=== PATIENT | male | born 1950 | race Caucasian/White ===

== ENCOUNTER 2017-06-18 14:40 | Observation (INO) ==
[2017-06-18] MEDS ORDERED: Ondansetron ODT 4 MG TAB.RAPDIS SL ONE (15:47)
[2017-06-18 16:12] LABS: Basophils % 0.5 %; Eosinophils # 0.1 K/mcL (0.0-0.6); Hematocrit 45.8 % (37.5-50.1); Hemoglobin 15.1 g/dL (12.9-16.9); Immature Granulocytes % 0.4 % (0-4); Lymphocytes # 1.1 K/mcL (0.6-4.6); Mean Corpuscular Hemoglobin 28.9 pg (28.0-33.3); Mean Corpuscular Volume 87.6 fL (83.0-100.0); Mean Platelet Volume 10.7 fL (9.4-12.4); Monocytes # 0.6 K/mcL (0.0-1.3); Monocytes % 10.9 %; Neutrophils # 3.8 K/mcL (1.6-8.9); Platelet Count 166 K/mcL (140-400); Red Blood Count 5.23 M/mcL (4.19-5.50); Red Cell Distribution Width 12.9 % (11.5-14.5); Segmented Neutrophils % 67.2 %
[2017-06-18 16:25] LABS: BUN/Creatinine Ratio 21 (6-26); Blood Urea Nitrogen 18 mg/dL (8-26); Calcium 9.2 mg/dL (8.6-10.8); Carbon Dioxide 21 mEq/L (19-29); Chloride 105 mEq/L (98-109); Glucose 139 mg/dL (70-99); Osmolality,Calculated 290 (280-300); Potassium 4.4 mEq/L (3.5-4.5); Sodium 138 mEq/L (136-145); eGFR For African Americans > 60 (> 60); eGFR For Non-African Americans > 60 (> 60)
--- NOTE | 2017-06-18 16:30 | Emergency Department Note ---
Disposition Clinical Impression: Vertigo, Chest pain of uncertain etiology Disposition: Admitted As Inpatient Condition: Fair Referrals: NONE,PCP [Primary Care Provider] - Forms: ED Satisfaction Letter Time of Disposition: 20:05 Neuro HPI - General Chief Complaint: ED Neuro Symptoms/Deficit Stated Complaint: neuro symptoms x 2 days Time Seen by Provider: 06/18/17 15:02 Source: patient Limitations: no limitations Nursing Notes Reviewed: Yes Vital Signs Reviewed: Yes - History of Present Illness HPI Narrative: Mr. Barnes, 67-year-old male, presents from home with daughter bedside for evaluation of what he describes as "blacking out." Patient describes position dependent dizziness over the last week. Increased in intensity Wednesday and Wednesday. During these symptoms, he describes the room spinning and he is about to lose his balance. Before he falls, he sits down to regain his composure. He denies falling, no loss of consciousness. No prior episodes of similar symptoms. Patient does not have a primary care physician has not seen a physician in some time. He notes untreated hypertension and hyperglycemia. Patient's daughter, and RN at this facility, measured his blood pressure at noon today as 177/117. No history of CAD, ACS, CVA, TIA. No daily anticoagulant or antiplatelet use. Daily medications. - Related Data Home Medications: Home Medications Medication Instructions Recorded Confirmed DiphenhydraMINE [Benadryl] 12.5 mg PO DAILY PRN 06/18/17 06/18/17 Allergies/Adverse Reactions: Allergies Allergy/AdvReac Type Severity Reaction Status Date / Time No Known Allergies Allergy Verified 06/18/17 16:48 All systems ED: reviewed and negative except as stated. Review of Systems: As Per HPI Past Medical History - Past Medical History Medical history: Reports: no medical history Psychiatric history: Reports: no psych history - Social History Smoking Status: Never smoker Smokeless Tobacco Status: No Alcohol use: Reports: none Drug use: Reports: none Physical Exam Vital Signs Reviewed General: Patient is alert, oriented, and in no acute distress. HEENT: No facial asymmetry. Head is normocephalic and atraumatic. PERRLA, EOMI. bilateral fatigable horizontal nystagmus. No visual field deficits. No papilledema bilaterally on funduscopic exam. Cardiovascular: Heart regular rate and rhythm without clicks, rubs, gallops, or murmurs. No JVD. PMI nondisplaced. Respiratory: Symmetric chest rise with good respiratory effort. Bilateral breath sounds are clear without wheezing, crackles, or rhonchi. Abdomen: Bowel sounds present normoactive x-4 quadrants. Abdomen is soft, nondistended, and nontender. No organomegaly noted. Musculoskeletal: Muscle strength 5/5 and symmetric bilaterally in upper and lower extremities. Neuro: Cranial nerves II through XII without deficit. Sensation light touch intact. No pronator drift. Negative [id number]. No dysphagia or a aphasia. Psych: Patient's affect is appropriate for situation. - General Limitations: no limitations General appearance: alert, in no apparent distress Course Course Narrative: Patient symptoms clinically appeared to be positional. Lack of patient's medical history is not reassuring; rather it is concerning as there are no prior workups were previous medical history on which to gauge his risk factors. Attempted to find the patient with Antivert; he refused. EKG is nonspecific. No previous EKG for comparison. Initial troponin is within normal limits. Serum hematology is unremarkable. Serum chemistry is remarkable only for mild hyperglycemia. Urinalysis is not concerning for UTI. Chest x-ray and CT head showed no acute findings per radiology read. Patient is asymptomatic when still becomes symptomatic with movement. I discussed with he and his family bedside the need for continued workup specifically to rule out posterior venous sinus thrombosis. I discussed in detail the need for MRI which is appropriately done on an inpatient basis. He is in agreement to admission for continued evaluation and management. I discussed the patient with the admitting hospitalist, Dr. Kendall, increased to except the patient for further evaluation and management. Head CT 06/18/17 15:46 IMPRESSION: No acute intracranial abnormality. D/ / Jovana Post Cha, MD / Jovana Post Cha, MD Interpreting Provider: Jovana Post Cha, MD Vital Signs Temperature 98.5 F 06/18/17 14:56 Pulse Rate 72 06/18/17 14:56 Respiratory Rate 18 06/18/17 14:56 Blood Pressure 159/92 06/18/17 14:56 O2 Sat by Pulse Oximetry 99 06/18/17 14:56 Temperature 98.5 F 06/18/17 14:56 Pulse Rate 65 06/18/17 17:40 Respiratory Rate 18 06/18/17 17:40 Blood Pressure 133/91 06/18/17 17:40 O2 Sat by Pulse Oximetry 98 06/18/17 17:40 Oxygen Delivery Oxygen Delivery Room Air Neuro Symptoms/Deficit - Lab Data Result diagrams: 06/18/17 16:06 06/18/17 16:06 Lab Results 06/18/17 06/18/17 06/18/17 Range/Units 16:06 16:06 16:06 WBC 5.6 (4.3-11.1) K/mcL RBC 5.23 (4.19-5.50) M/mcL Hgb 15.1 (12.9-16.9) g/dL Hct 45.8 (37.5-50.1) % MCV 87.6 (83.0-100.0) fL MCH 28.9 (28.0-33.3) pg MCHC 33.0 (31.6-35.5) g/dL RDW 12.9 (11.5-14.5) % Plt Count 166 (140-400) K/mcL MPV 10.7 (9.4-12.4) fL Immature Gran % 0.4 (0-4) % Seg Neutrophils % 67.2 % Lymphocytes % 19.0 % Monocytes % 10.9 % Eosinophils % 2.0 % Basophils % 0.5 % Neutrophils # 3.8 (1.6-8.9) K/mcL Lymphocytes # 1.1 (0.6-4.6) K/mcL Monocytes # 0.6 (0.0-1.3) K/mcL Eosinophils # 0.1 (0.0-0.6) K/mcL Basophils # 0.0 (0.0-0.2) K/mcL PT (9.4-12.1) Seconds INR APTT (26.0-36.0) Seconds Sodium 138 (136-145) mEq/L Potassium 4.4 (3.5-4.5) mEq/L Chloride 105 (98-109) mEq/L Carbon Dioxide 21 (19-29) mEq/L BUN 18 (8-26) mg/dL Creatinine 0.84 (0.72-1.25) mg/dL Est GFR ( Amer) > 60 (> 60) Est GFR (Non-Af Amer) > 60 (> 60) BUN/Creatinine Ratio 21 (6-26) Glucose 139 H (70-99) mg/dL Calculated Osmolality 290 (280-300) Calcium 9.2 (8.6-10.8) mg/dL Total Bilirubin 0.5 (0.2-1.2) mg/dL Direct Bilirubin 0.2 (0.0-0.5) mg/dL Indirect Bilirubin 0.3 (0.0-1.2) mg/dL AST 21 (5-34) Units/L ALT 30 (0-55) Units/L Alkaline Phosphatase 77 (38-126) Units/L Troponin I 0.01 (0-0.03) ng/mL Serum Total Protein 7.6 (6.0-8.3) g/dL Albumin 3.7 (3.5-5.0) g/dL Globulin 3.9 H (2.4-3.5) g/dL Albumin/Globulin Ratio 0.9 L (1.1-2.2) Lipase 19 (8-78) Units/L Urine Color (Yellow) Urine Clarity (Clear) Urine pH (5.0-8.0) pH Units Ur Specific [place] (1.010-1.025) Urine Protein (Neg-Trace) mg/dL Urine Glucose (UA) (Normal) mg/dL Urine Ketones (Negative) mg/dL Urine Blood (Negative) Urine Nitrite (Negative) Urine Bilirubin (Negative) Urine Urobilinogen (Normal) mg/dL Ur Leukocyte Esterase (Negative) Ur Culture Indicated? (NO) 06/18/17 06/18/17 Range/Units 16:06 17:50 WBC (4.3-11.1) K/mcL RBC (4.19-5.50) M/mcL Hgb (12.9-16.9) g/dL Hct (37.5-50.1) % MCV (83.0-100.0) fL MCH (28.0-33.3) pg MCHC (31.6-35.5) g/dL RDW (11.5-14.5) % Plt Count (140-400) K/mcL MPV (9.4-12.4) fL Immature Gran % (0-4) % Seg Neutrophils % % Lymphocytes % % Monocytes % % Eosinophils % % Basophils % % Neutrophils # (1.6-8.9) K/mcL Lymphocytes # (0.6-4.6) K/mcL Monocytes # (0.0-1.3) K/mcL Eosinophils # (0.0-0.6) K/mcL Basophils # (0.0-0.2) K/mcL PT 11.4 (9.4-12.1) Seconds INR 1.1 APTT 31.1 (26.0-36.0) Seconds Sodium (136-145) mEq/L Potassium (3.5-4.5) mEq/L Chloride (98-109) mEq/L Carbon Dioxide (19-29) mEq/L BUN (8-26) mg/dL Creatinine (0.72-1.25) mg/dL Est GFR ( Amer) (> 60) Est GFR (Non-Af Amer) (> 60) BUN/Creatinine Ratio (6-26) Glucose (70-99) mg/dL Calculated Osmolality (280-300) Calcium (8.6-10.8) mg/dL Total Bilirubin (0.2-1.2) mg/dL Direct Bilirubin (0.0-0.5) mg/dL Indirect Bilirubin (0.0-1.2) mg/dL AST (5-34) Units/L ALT (0-55) Units/L Alkaline Phosphatase (38-126) Units/L Troponin I (0-0.03) ng/mL Serum Total Protein (6.0-8.3) g/dL Albumin (3.5-5.0) g/dL Globulin (2.4-3.5) g/dL Albumin/Globulin Ratio (1.1-2.2) Lipase (8-78) Units/L Urine Color Yellow (Yellow) Urine Clarity Clear (Clear) Urine pH 6.0 (5.0-8.0) pH Units Ur Specific [place] 1.027 H (1.010-1.025) Urine Protein Negative (Neg-Trace) mg/dL Urine Glucose (UA) Normal (Normal) mg/dL Urine Ketones Negative (Negative) mg/dL Urine Blood Negative (Negative) Urine Nitrite Negative (Negative) Urine Bilirubin Negative (Negative) Urine Urobilinogen Normal (Normal) mg/dL Ur Leukocyte Esterase Negative (Negative) Ur Culture Indicated? NO (NO) - EKG Data EKG attestation: Yes I reviewed and interpreted this EKG. EKG results narrative: EKG dated June 2017 at 16:17 interpreted as sinus rhythm with rate of 60. Occasional PVC. Normal intervals. 61, curettes 88, QT/QTC 410/428. Normal axis. Nonspecific ST T changes. No previous EKG for comparison. NIH Stroke Scale - Level of Consciousness LOC: Alert - LOC Questions LOC Questions: Answers both correctly - LOC Commands LOC Commands: Performs both correctly - Best Gaze Best Gaze: Normal - Visual Visual: No visual loss - Facial Palsy Facial Palsy: Normal - Motor Arms Motor Arm-Left: No drift for 10 seconds Motor Arm-Right: No drift for 10 seconds - Motor Legs Motor Leg-Left: No drift for 5 seconds Motor Leg-Right: No drift for 5 seconds - Limb Ataxia Limb Ataxia: Absent of affected limb too weak to perform exam - Sensory Sensory: Normal - Best Language Best Language: No aphasia - Dysarthria Dysarthria: Normal - Extinction and Inattention Extinction and Inattention: Normal - NIHSS Total Score NIHSS Total Score: 0 TPA Checklist - LKW: 3-4.5 hrs Add. Warnings/Precautions Patient/family understanding: The patient/family members have been counseled and understood the risk, benefit , and alternatives of treatment.
[2017-06-18 16:43] LABS: INR 1.1; Prothrombin Time 11.4 Seconds (9.4-12.1)
[2017-06-18 16:46] LABS: Activated Partial Thrombo Time 31.1 Seconds (26.0-36.0)
--- NOTE | 2017-06-18 16:49 | Emergency Department Note ---
START Narrative - START START: I examined this patient and my medical decision-making was reviewed with the Resident Physician. I agree with the documented findings, disposition and treatment plan as described except to the extent set forth below. 67 year old male presntes to the Ed with his daughter at bedside who states he has had generlized weakness for the past week or so. He states that he was working in his basement and everytime he would look up at the ceiling he would get tunnel vision and have near syncope type symptoms. Patient denies dizziness or spinning to the room. HE states that he would quickly bring his head back down and it would resolve. He states that he has also associted stuttering to his speech about two days ago with right hand tremor which has resoled. Daughter at bedside states that he appear retana and pale to her yesterday. He is also experiencing midsternal chest pain and abdominal discomfort which does not radiates. We will do generalized workup with labs and add a HCT for further evaluation .Likely admit to medicine
[2017-06-18 16:52] LABS: Alanine Aminotransferase 30 Units/L (0-55); Albumin 3.7 g/dL (3.5-5.0); Albumin/Globulin Ratio 0.9 (1.1-2.2); Alkaline Phosphatase 77 Units/L (38-126); Aspartate Amino Transferase 21 Units/L (5-34); Bilirubin,Direct 0.2 mg/dL (0.0-0.5); Bilirubin,Indirect 0.3 mg/dL (0.0-1.2); Bilirubin,Total 0.5 mg/dL (0.2-1.2); Globulin 3.9 g/dL (2.4-3.5); Lipase 19 Units/L (8-78); Total Protein 7.6 g/dL (6.0-8.3)
[2017-06-18 18:03] LABS: Bilirubin,Urine Negative (Negative); Blood,Urine Negative (Negative); Clarity,Urine Clear (Clear); Color,Urine Yellow (Yellow); Glucose,Urine (UA) Normal (Normal); Ketones,Urine Negative (Negative); Leukocyte Esterase,Urine Negative (Negative); Nitrite,Urine Negative (Negative); Protein,Urine Negative (Neg-Trace); Specific Gravity,Urine 1.027 (1.010-1.025); Urobilinogen,Urine Normal (Normal)
[2017-06-18] MEDS ORDERED: Naloxone 0.4 MG/ML INJ IVP PRN (21:02)
[2017-06-18] MEDS ORDERED: Ondansetron 4 MG/2 ML VIAL IVP PRN (21:02)
[2017-06-18] MEDS ORDERED: Acetaminophen 325 MG TABLET PO PRN (21:02)
[2017-06-18] MEDS ORDERED: *HR* Morphine 2 MG/ML SYRINGE IVP PRN (21:02)
--- NOTE | 2017-06-18 21:10 | Internal Med History&Physical ---
Date of Encounter: 06/18/17 Time of Encounter: 21:00 Assessment and Plan (1) Dizziness Current visit: Yes Status: Acute Dizziness with presyncope - possibly due to uncontrolled hypertension, possible CVA, possible vertebral artery occlusion Continue Aspirin, Simvastatin CT brain - no acute intracranial abnormality Echocardiogram - pending CTA head and neck - pending EKG - sinus rhythm with some PVCs, no acute ST-T changes Troponin - 0.01 Cardiac telemetry, labs in a.m., monitor closely (2) Essential hypertension Current visit: Yes Status: Acute Essential hypertension, uncontrolled, monitor - newly diagnosed hypertension Add lisinopril/HCTZ (3) DVT prophylaxis Current visit: Yes Status: Acute Heparin subcutaneous Internal Medicine - H&P: HPI Chief complaint: Dizziness, syncope Admitted From: Emergency Dept Plans for Post Hospital Care: Home History of present illness: Mr. Barnes is a 67 year old male with no significant past medical history. Patient presented to ED with complaints of dizziness and syncope. Examined in the room. Patient is awake and alert. Not in any distress. Able to provide all history. Family is at bedside. Patient states over the past week he has been having episodes where he feels like he is going to black out. He states he been feeling dizzy when he looks up. Patient states he has been working on his and has been painting gregorio. He is required to look up for long periods of time and states he feels dizzy and feels like he is about to pass out that time. No history of injury or trauma to the head recently. Patient denies having any blackout. states that patient's blood pressure has been elevated over the past week. They have been checking it almost every day and the systolic blood pressure has been consistently over 150. Patient denies chest pain or shortness of breath at this time. He does complain of intermittent palpitations. Denies fever or vomiting. Symptoms worse with head movement. Alleviated with rest. No abdominal pain. No other associated symptoms. No acute complaints. Initial EGD is negative. CT of the head does not show any acute intraparenchymal abnormality. EKG shows sinus rhythm with occasional PVCs but no acute ST-T changes. Patient will need a CT angiogram of the head and neck. Echocardiogram is also pending. Patient and family have been explained about his condition and plan in detail. They understood and agreed. No one his questions. CODE STATUS full code. Past Med Surg Social Fam HX - Past Medical History Medical history: no medical history Psychiatric history: no psych history - Social History Smoking Status: Never smoker Smokeless Tobacco Status: No Alcohol use: none Drug use: none - Family History Mother Living Status: Hx Family Cancer: Yes Hx Family Endocrine Disorder: Yes Father Living Status: Internal Medicine - H&P: Meds DiphenhydraMINE [Benadryl] 12.5 mg PO DAILY PRN 06/18/17 [History] 3 Allergy/AdvReac Type Severity Reaction Status Date / Time No Known Allergies Allergy Verified 06/18/17 16:48 All Systems PM: A 10-system review of systems was performed and is negative for pertinent findings except as documented above in the HPI. - Constitutional Constitutional: fatigue, no fever(s), no falls, no weakness - EENT Eyes: no blurry vision - Cardiovascular Cardiovascular ROS IM: no chest pain, no diaphoresis, no dyspnea, no dyspnea on exertion, no edema, no lightheadedness, no orthopnea, no palpitations, no syncope - Respiratory Respiratory: no cough, no dyspnea, no hemoptysis, no dyspnea on exertion, no wheezing, no chest congestion - Gastrointestinal Gastrointestinal: no abdominal pain, no bloating, no diarrhea, no hematemesis, no hematochezia, no loose stools, no nausea, no vomiting - Genitourinary Genitourinary ROS male: no dysuria - Neurological Neurological ROS: dizziness, no abnormal gait, no abnormal speech, no confusion , no focal weakness, no loss of vision, no numbness, no tingling - Constitutional Vitals: Temp Pulse Resp BP Pulse Ox 98.5 F 67 18 146/79 94 06/18/17 14:56 06/18/17 20:00 06/18/17 21:01 06/18/17 21:01 06/18/17 20:00 General appearance: Present: cooperative, A&O X 3, pleasant, no acute distress, obese, answers questions appropriately - Head Head exam: Present: atraumatic - Eye Eye exam: Present: EOMI - ENT ENT exam: Present: mucous membranes dry - Respiratory Respiratory exam: Present: CTAB. Absent: accessory muscle use, rales, respiratory distress, rhonchi, wheezes, tachypnea - Cardiovascular Cardiovascular exam: Present: RRR, +S1, +S2 - GI/Abdominal GI/Abdominal exam: Present: soft. Absent: distended, firm, guarding, tenderness - Extremities Exam Extremities exam: Present: radial pulses palpable and symmetrical. Absent: calf tenderness, cyanotic, pedal edema - Neurological Exam Neurological exam: Present: alert, oriented X3, no focal deficits. Absent: facial droop, speech deficit Internal Med - H&P Results - Labs CBC & Chem 7: 06/18/17 16:06 06/18/17 16:06
[2017-06-18] MEDS ORDERED: 0.9 % Sodium Chloride 1,000 ML IVC SCH (21:15)
[2017-06-18] MEDS: *HR* Heparin 5,000 UNIT/ML VIAL SQ SCH (23:26)
[2017-06-18] MEDS: Aspirin 81 MG TAB.CHEW PO SCH (23:26)
[2017-06-19] MEDS: *HR* Heparin 5,000 UNIT/ML VIAL SQ SCH ×2 (06:37→14:54)
[2017-06-19 06:38] LABS: Hemoglobin A1C 5.9 %
[2017-06-19 06:46] LABS: BUN/Creatinine Ratio 21 (6-26); Blood Urea Nitrogen 19 mg/dL (8-26); Calcium 8.8 mg/dL (8.6-10.8); Carbon Dioxide 24 mEq/L (19-29); Chloride 107 mEq/L (98-109); Chol/HDL Ratio 5.6 (0-4.9); Cholesterol 203 mg/dL (< 200); Glucose 120 mg/dL (70-99); HDL Cholesterol 36 mg/dL (40-59); LDL Cholesterol,Calculated 139 mg/dL (0-99); Magnesium 2.1 mg/dL (1.6-2.6); Osmolality,Calculated 287 (280-300); Potassium 4.4 mEq/L (3.5-4.5); Sodium 137 mEq/L (136-145); Triglycerides 142 mg/dL (< 150); eGFR For African Americans > 60 (> 60); eGFR For Non-African Americans > 60 (> 60)
[2017-06-19 07:07] LABS: Thyroid Stimulating Hormone 2.076 mcIU/mL (0.350-4.840)
[2017-06-19] MEDS: Aspirin 81 MG TAB.CHEW PO SCH (08:28)
[2017-06-19 11:48] VITALS: BP 108/69
--- NOTE | 2017-06-19 16:50 | Discharge Summary ---
Date of Encounter: 06/19/17 Time of Encounter: 11:50 - Discharge Diagnosis (1) Dizziness Priority: Primary Status: Acute Comments: Patient states over the past week he has been having episodes where he feels like he is going to black out. He states he been feeling dizzy when he looks up. Patient states he has been painting his ceiling at home and when he spends a great deal of time looking up he becomes dizzy. No history of injury or trauma to the head recently. Patient denies any actual loss of consciousness.. states that patient's blood pressure has been elevated over the past week. They have been checking it almost every day and the systolic blood pressure has been consistently over 150. Patient denies chest pain or shortness of breath, nausea, diaphoresis or headache. He denies any fever or chills, neck pain or injury. He does complain of intermittent palpitations with dizziness when he moves from lying to standing. Alleviated with rest. Patient had CT angiogram head and neck. There is suboptimal contrast opacification of the distal ICA and distal vertebral arteries. Within the limitations of the exam there is no vertebral artery dissection, major branch occlusion or cerebral aneurysm identified. There are atherosclerotic calcifications of the origins of the ICA without significant stenosis. Moderate to severe spinal canal stenosis and severe bilateral neuroforaminal opening at C6-7 secondary to broad posterior disc osteophyte complex. There is severe right neural foraminal narrowing at C3-C4. Echo showed LVEF was 60%, mild LV DD, wall segment with normal motion. Patient is declining further testing. His states that he is going to sign out AMA if he is not discharged since this time. I have discussed following up with ENT. Patient does not have a primary care provider at this time. He does not going to the doctor and does not have routine workups done. Patient is going to be discharged with a prescription for antihypertensive and meclizine. I have told patient not to drive until he follows up with primary care due to dizziness. Discussed with patient he needs to move from lying to sitting to standing, and turn his head slowly and make sure that he is stable before proceeding with any activities that could cause him harm. I suggested after patient establishes with primary care that he wear a Holter monitor. (2) Vertigo Priority: Primary Status: Acute Comments: Plan as above. (3) Essential hypertension Priority: Primary Status: Acute Comments: Newly diagnosed hypertension. Patient will be discharged with lisinopril/HCTZ prescription. (4) DVT prophylaxis Priority: Secondary Status: Acute Comments: Heparin subcutaneous. - Discharge Medications Prescriptions: Aspirin 81 mg PO DAILY #30 tab.chew Lisinopril-HCTZ 10-12.5 [Prinzide 10-12.5] 1 each PO DAILY #30 tablet Simvastatin [Zocor] 20 mg PO HS #30 tablet Home Medications: DiphenhydraMINE [Benadryl] 12.5 mg PO DAILY PRN 06/18/17 [History] Aspirin 81 mg PO DAILY #30 tab.chew 06/19/17 [Rx] Lisinopril-HCTZ 10-12.5 [Prinzide 10-12.5] 1 each PO DAILY #30 tablet 06/19/17 [ Rx] Simvastatin [Zocor] 20 mg PO HS #30 tablet 06/19/17 [Rx] Allergies/Adverse Reactions: 3 Allergy/AdvReac Type Severity Reaction Status Date / Time No Known Allergies Allergy Verified 06/18/17 16:48 Procedures/tests Complete & Pending: Procedures Performed prior 72 hours Category Date Time Status CT angio head [CT] Routine Cat Scan 06/19/17 09:[address] angio neck [CT] Routine Cat Scan 06/19/17 09:30 Completed ECG 12 lead ECG [ECG] AM 0600 Y 06/19/17 06:00 Ordered EV echocardiogram Routine Y 06/19/17 00:48 Completed Date of admission: 06/18/17 20:47 Primary care physician: PCP NONE Discharging clinician: Melissa Yang Anticipated date of discharge: 06/19/17 - Patient Status Disposition: Home, Self-Care Condition: Fair Functional capacity at discharge: independent ambulation Overall status at discharge: patient is progressing back to baseline - Discharge Instructions Follow Up With: NONE,PCP [Primary Care Provider] - Additional Instructions: Please follow-up with the primary care provider. Recommend that you have a Holter monitor, as well as a referral to ENT. Please take your prescriptions as directed. Do not drive a car until you are cleared by a provider. Return to the emergency department as needed. Return to your normal activities and diet as tolerated. Change position slowly to ensure they do not fall or harm herself. - Diet and Activity Activity: resume usual activities as tolerated Diet: advance to your usual diet Hospital course: Mr. Barnes is a 67 year old male with no significant past medical history. Patient does not doctor. He does not have a primary care provider. She presents with several week history of dizziness, hypertension. Workup was negative. He is newly diagnosed with hypertension. He will be sent home with prescriptions for statin, antihypertensive, and aspirin daily. We will put in a web request to have him seen at the resident clinic. Patient is stable and appropriate for discharge. - Time Spent with Patient Total time spent providing and/or coordinating discharge services: Less than 30 minutes - Constitutional Vitals: Temp Pulse Resp BP Pulse Ox 98.0 F 77 18 108/69 96 06/19/17 11:47 06/19/17 11:47 06/19/17 11:47 06/19/17 11:48 06/19/17 11:47 General appearance: Present: cooperative, A&O X 3, pleasant, no acute distress, obese, answers questions appropriately - Head Head exam: Present: atraumatic, normal inspection, normocephalic - Eye Eye exam: Present: normal appearance, conjuntiva pink, sclera anicteric - Neck Neck exam general surgery: Present: supple, trachea midline. Absent: lymphadenopathy, tenderness - Respiratory Respiratory exam: Present: CTAB. Absent: accessory muscle use, rales, respiratory distress, rhonchi, wheezes - Cardiovascular Cardiovascular exam: Present: RRR, +S1, +S2. Absent: diastolic murmur, gallop, rubs, systolic murmur - GI/Abdominal GI/Abdominal exam: Present: normal bowel sounds, soft, no peritoneal signs. Absent: distended, hepatomegaly, tenderness - Extremities Exam Extremities exam: Present: warm, radial pulses palpable and symmetrical. Absent : calf tenderness, cyanotic, pedal edema - Neurological Exam Neurological exam: Present: alert, oriented X3, no focal deficits. Absent: facial droop, speech deficit - Skin Skin exam: Present: dry, intact, normal color, warm. Absent: rash
--- NOTE | 2017-06-21 02:16 | Electrocardiograph Report ---
[address] [place] [address] Test Date: 2017-06-18 Pat Name: Jt Barnes Department: 104 Room: 3B54 Gender: M [employer]: [facility] : 1950 Requested By: Campbell Mckeon Order Number: [id number] Reading MD: Farhan Kim MD Measurements Intervals [place] Rate: 68 P: 13 GA: 161 QRS: 8 QRSD: 88 T: 28 QT: 410 QTc: 428 Interpretive Statements SINUS RHYTHM WITH OCCASIONAL VENTRICULAR PREMATURE COMPLEXES ANTEROSEPTAL MYOCARDIAL INFARCTION, OF INDETERMINATE AGE Electronically Signed On 06-21-2017 2:14:28 EST by Farhan Kim MD
== END 2017-06-19 17:50 | disposition home or self-care (01) ==
LOC: 3NENU 14:40 → EMEROO 14:40 → 3BNU 20:48
PROVIDERS: ADMIT Family Medicine; ATTEND Registered Nurse

== ENCOUNTER 2022-01-13 11:59 | Inpatient (IN) ==
[2022-01-13] MEDS ORDERED: Ketamine HCL *QUVA* 50mg (1mL) SYRINGE ONE (12:07)
[2022-01-13] MEDS ORDERED: *HR* Succinylcholine 200 MG/10 ML VIAL IVP ONE (12:08)
[2022-01-13] MEDS ORDERED: *HR* FentaNYL (PF) 100 MCG/2 ML VIAL ONE (12:08)
[2022-01-13] MEDS ORDERED: *HR* Propofol 200 MG/20 ML VIAL IVP ONE (12:08)
[2022-01-13] MEDS ORDERED: *HR* Magnesium Sulfate 1 GM/2 ML VIAL ONE (12:08)
[2022-01-13] MEDS ORDERED: Lidocaine -MPF 2% 5 ML VIAL ONE (12:08)
[2022-01-13] MEDS ORDERED: *HR* Rocuronium Bromide 50 MG/5 ML VIAL ONE ×2 (12:08→13:38)
[2022-01-13] MEDS ORDERED: Ondansetron 4 MG/2 ML VIAL ONE (12:08)
[2022-01-13] MEDS ORDERED: *HR* OxyCODONE Immed Rel 5 MG TABLET PO PRN (12:17)
[2022-01-13] MEDS ORDERED: Promethazine 6.25 MG in Water for inj. (sterile) 20 ML IVPB PRN (12:19)
[2022-01-13] MEDS ORDERED: Ondansetron 4 MG/2 ML VIAL IVP PRN ×2 (12:19→18:17)
[2022-01-13] MEDS ORDERED: cefOXitin 2,000 MG in 0.9 % Sodium Chloride 20 ML IVP ONE (12:26)
[2022-01-13] MEDS ORDERED: Ringers Solution, Lactated 1,000 ML IVC SCH (12:30)
[2022-01-13] MEDS ORDERED: CefOXitin 1,000 MG VIAL ONE (12:37)
[2022-01-13] MEDS ORDERED: *HR* Phenylephrine 10 MG/ML VIAL ONE (12:48)
[2022-01-13] MEDS ORDERED: Albumin Human 5% 25.0 GM/500 ML IV.SOLN ONE (13:06)
[2022-01-13] MEDS ORDERED: Acetaminophen IV 1,000 MG/100 ML BAG IVPB ONE ×2 (14:07→15:15)
[2022-01-13] MEDS ORDERED: CefOXitin 2,000 MG VIAL ONE (14:53)
[2022-01-13] MEDS ORDERED: Sugammadex Sodium 200 MG/2 ML VIAL IV ONE (15:13)
[2022-01-13] MEDS ORDERED: *HR* HYDROMORPHONE 2 MG/ML VIAL ONE (16:20)
[2022-01-13] MEDS: *HR* HYDROmorphone PF 0.5 MG/0.5 ML SYRINGE IVP PRN ×4 (16:58→17:33)
[2022-01-13] MEDS ORDERED: *HR* HYDROmorphone PCA *PREMADE* 20 MG/1MG/ML (20mL) PCA VIAL IVC PRN (18:17)
[2022-01-13] MEDS ORDERED: Naloxone 0.4 MG/ML INJ IVP PRN (18:17)
[2022-01-13] MEDS: 0.9 % Sodium Chloride 1,000 ML IVC SCH (20:20)
[2022-01-13] MEDS: Ketorolac 30 MG/ML VIAL IVP SCH (22:28)
[2022-01-13] MEDS: Acetaminophen IV 1,000 MG/100 ML BAG IVPB SCH (22:29)
[2022-01-14] MEDS: cefOXitin 1,000 MG in Water for inj. (sterile) 10 ML IVP SCH ×3 (00:52→17:35)
[2022-01-14] MEDS: Ketorolac 30 MG/ML VIAL IVP SCH ×4 (02:48→17:37)
[2022-01-14] MEDS: Acetaminophen IV 1,000 MG/100 ML BAG IVPB SCH ×5 (02:50→21:47)
[2022-01-14 05:00] LABS: Hematocrit 26.8 % (37.5-50.1); Hemoglobin 7.8 g/dL (12.9-16.9); Immature Granulocytes % 0.3 % (0-4); Lymphocytes # 0.4 K/mcL (0.6-4.6); Lymphocytes % 5.7 %; Mean Corpuscular HGB Conc 29.1 g/dL (31.6-35.5); Mean Corpuscular Hemoglobin 19.7 pg (28.0-33.3); Mean Corpuscular Volume 67.8 fL (83.0-100.0); Mean Platelet Volume 10.4 fL (9.4-12.4); Monocytes # 0.4 K/mcL (0.0-1.3); Monocytes % 6.3 %; Neutrophils # 5.9 K/mcL (1.6-8.9); Platelet Count 247 K/mcL (140-400); Red Blood Count 3.95 M/mcL (4.19-5.50); Red Cell Distribution Width 20.4 % (11.5-14.5); Segmented Neutrophils % 87.7 %
[2022-01-14 05:09] LABS: White Blood Count 6.7 K/mcL (4.3-11.1)
[2022-01-14 05:27] LABS: BUN/Creatinine Ratio 13 (6-26); Blood Urea Nitrogen 10 mg/dL (8-23); Calcium 8.3 mg/dL (8.6-10.3); Carbon Dioxide 24 mEq/L (23-29); Chloride 105 mEq/L (98-107); Glucose 142 mg/dL (70-105); Osmolality,Calculated 283 (280-300); Potassium 4.5 mEq/L (3.5-5.1); Sodium 136 mEq/L (136-145); eGFR For African Americans > 60 (> 60); eGFR For Non-African Americans > 60 (> 60)
[2022-01-14 05:43] LABS: Anisocytosis 2+ (Not Present); Microcytosis Present (Not Present); Platelet Estimate Normal (Normal); Poikilocytosis 1+ (Not Present); Target Cells 1+ (Not Present)
[2022-01-14] MEDS ORDERED: *HR* Heparin 5,000 UNIT/ML VIAL ONE (06:59)
[2022-01-14] MEDS: 0.9 % Sodium Chloride 1,000 ML IVC SCH ×2 (07:09→20:42)
[2022-01-14] MEDS: *HR* Heparin 5,000 UNIT/ML VIAL SQ SCH ×2 (08:23→17:37)
[2022-01-14] MEDS ORDERED: Orphenadrine 60 MG/2 ML VIAL IVP PRN (09:06)
[2022-01-14] MEDS ORDERED: Ondansetron 4 MG/2 ML VIAL IVP PRN (09:08)
[2022-01-14] MEDS ORDERED: Scopolamine Patch 1.5 MG PATCH.TD72 TD ONE (09:08)
[2022-01-14] MEDS ORDERED: Saliva Stimulant 44.3ml BOTTLE PO PRN (09:12)
[2022-01-14] MEDS ORDERED: Chloraseptic Spray 177 ML BOTTLE MM PRN (09:12)
[2022-01-14 09:34] LABS: % Iron Saturation 6 % (20-55); Iron 19 mcg/dL (65-175); Transferrin 215 mg/dL (203-362)
[2022-01-14] MEDS: Iron Sucrose Complex 250 MG in 0.9 % Sodium Chloride 250 ML IVPB SCH (11:33)
[2022-01-14 12:14] LABS: Estimated Average Glucose 134 mg/dl; Hemoglobin A1C 6.3 %
[2022-01-14] MEDS: Pantoprazole 40 MG VIAL IVP SCH (17:37)
[2022-01-14] MEDS ORDERED: *HR* HYDROmorphone PCA *PREMADE* 20 MG/1MG/ML (20mL) PCA VIAL IVC PRN (20:23)
[2022-01-15] MEDS: Ketorolac 30 MG/ML VIAL IVP SCH ×4 (00:27→18:13)
[2022-01-15] MEDS: Acetaminophen IV 1,000 MG/100 ML BAG IVPB SCH ×4 (00:28→18:14)
[2022-01-15 01:34] LABS: Basophils % 0.3 %; Hematocrit 26.4 % (37.5-50.1); Hemoglobin 7.7 g/dL (12.9-16.9); Immature Granulocytes % 0.3 % (0-4); Lymphocytes # 0.7 K/mcL (0.6-4.6); Mean Corpuscular HGB Conc 29.2 g/dL (31.6-35.5); Mean Corpuscular Hemoglobin 20.1 pg (28.0-33.3); Mean Corpuscular Volume 68.8 fL (83.0-100.0); Mean Platelet Volume 10.7 fL (9.4-12.4); Monocytes # 0.6 K/mcL (0.0-1.3); Monocytes % 8.8 %; Neutrophils # 5.3 K/mcL (1.6-8.9); Platelet Count 250 K/mcL (140-400); Red Blood Count 3.84 M/mcL (4.19-5.50); Red Cell Distribution Width 22.1 % (11.5-14.5); Segmented Neutrophils % 80.6 %; White Blood Count 6.6 K/mcL (4.3-11.1)
[2022-01-15 01:54] LABS: Albumin 3.3 g/dL (3.5-5.7); BUN/Creatinine Ratio 15 (6-26); Blood Urea Nitrogen 14 mg/dL (8-23); Calcium 8.2 mg/dL (8.6-10.3); Carbon Dioxide 28 mEq/L (23-29); Chloride 104 mEq/L (98-107); Glucose 114 mg/dL (70-105); Osmolality,Calculated 285 (280-300); Phosphorous 3.1 mg/dL (2.7-4.5); Potassium 4.2 mEq/L (3.5-5.1); Sodium 137 mEq/L (136-145); Triglycerides 116 mg/dL (< 150); eGFR For African Americans > 60 (> 60); eGFR For Non-African Americans > 60 (> 60)
[2022-01-15 02:35] LABS: Anisocytosis 3+ (Not Present); Hypochromasia Present (Not Present)
[2022-01-15 02:36] LABS: Platelet Estimate Normal (Normal)
[2022-01-15] MEDS ORDERED: Calcium Gluconate 1gm/50mL 1 GM/50 ML BAG IVPB ONE (06:13)
[2022-01-15] MEDS: Pantoprazole 40 MG VIAL IVP SCH ×2 (06:33→18:12)
[2022-01-15] MEDS: *HR* Heparin 5,000 UNIT/ML VIAL SQ SCH ×2 (06:33→18:14)
[2022-01-15] MEDS: 0.9 % Sodium Chloride 1,000 ML IVC SCH ×2 (08:59→11:53)
[2022-01-15] MEDS: Iron Sucrose Complex 250 MG in 0.9 % Sodium Chloride 250 ML IVPB SCH (09:00)
[2022-01-15] MEDS: Orphenadrine 60 MG/2 ML VIAL IVP SCH ×2 (09:01→18:13)
[2022-01-16] MEDS: Acetaminophen IV 1,000 MG/100 ML BAG IVPB SCH ×4 (00:12→22:04)
[2022-01-16] MEDS: 0.9 % Sodium Chloride 1,000 ML IVC SCH (00:15)
[2022-01-16] MEDS: Ketorolac 30 MG/ML VIAL IVP SCH ×4 (00:17→18:10)
[2022-01-16 02:01] LABS: Basophils % 0.5 %; Eosinophils # 0.2 K/mcL (0.0-0.6); Eosinophils % 4.2 %; Hematocrit 26.5 % (37.5-50.1); Hemoglobin 7.8 g/dL (12.9-16.9); Immature Granulocytes % 0.5 % (0-4); Immature Platelets 4.8 % (1.1-6.1); Lymphocytes # 0.8 K/mcL (0.6-4.6); Lymphocytes % 17.6 %; Mean Corpuscular HGB Conc 29.4 g/dL (31.6-35.5); Mean Corpuscular Hemoglobin 20.7 pg (28.0-33.3); Mean Corpuscular Volume 70.5 fL (83.0-100.0); Mean Platelet Volume 10.9 fL (9.4-12.4); Monocytes # 0.5 K/mcL (0.0-1.3); Monocytes % 11.5 %; Neutrophils # 2.8 K/mcL (1.6-8.9); Platelet Count 217 K/mcL (140-400); Red Blood Count 3.76 M/mcL (4.19-5.50); Segmented Neutrophils % 65.7 %; White Blood Count 4.3 K/mcL (4.3-11.1)
[2022-01-16 02:14] LABS: BUN/Creatinine Ratio 10 (6-26); Blood Urea Nitrogen 7 mg/dL (8-23); Calcium 8.1 mg/dL (8.6-10.3); Carbon Dioxide 25 mEq/L (23-29); Chloride 107 mEq/L (98-107); Glucose 98 mg/dL (70-105); Magnesium 1.8 mg/dL (1.6-2.6); Osmolality,Calculated 284 (280-300); Phosphorous 2.8 mg/dL (2.7-4.5); Potassium 3.6 mEq/L (3.5-5.1); Sodium 138 mEq/L (136-145); eGFR For African Americans > 60 (> 60); eGFR For Non-African Americans > 60 (> 60)
[2022-01-16] MEDS: Pantoprazole 40 MG VIAL IVP SCH ×2 (06:01→18:11)
[2022-01-16] MEDS: Orphenadrine 60 MG/2 ML VIAL IVP SCH (06:06)
[2022-01-16] MEDS: *HR* Heparin 5,000 UNIT/ML VIAL SQ SCH ×2 (06:07→18:11)
[2022-01-16] MEDS: Calcium Gluconate 1gm/50mL 1 GM/50 ML BAG IVPB SCH ×2 (07:52→09:31)
[2022-01-16] MEDS ORDERED: Orphenadrine 60 MG/2 ML VIAL IVP PRN (09:03)
[2022-01-16] MEDS ORDERED: methocarbamoL 500 MG TABLET PO PRN (09:18)
[2022-01-16] MEDS: Iron Sucrose Complex 250 MG in 0.9 % Sodium Chloride 250 ML IVPB SCH (09:30)
[2022-01-16] MEDS ORDERED: Iopamidol - 370 500 ML MLS IVP ONE (10:23)
[2022-01-16 10:47] LABS: ABG Base Excess 0 mEq/L (-2 to 3); ABG HCO3 24 mEq/L (21-27); ABG Oxygen Saturation 97 % (95-98); ABG PCO2 35 mmHg (35-45); ABG PH 7.44 pH Units (7.32-7.45); ABG PO2 91 mmHg (85-104); ABG TCO2 25 mEq/L (20-26)
[2022-01-16] MEDS ORDERED: Iopamidol - 370 500 ML MLS PO ONE (11:22)
[2022-01-16] MEDS ORDERED: Nicotine 21 MG PATCH.TD24 TD SCH (22:30)
[2022-01-17] MEDS: Ketorolac 30 MG/ML VIAL IVP SCH ×5 (00:13→23:14)
[2022-01-17 03:18] LABS: Hematocrit 30.3 % (37.5-50.1); Immature Granulocytes % 0.4 % (0-4); Mean Corpuscular HGB Conc 29.7 g/dL (31.6-35.5); Mean Corpuscular Hemoglobin 20.4 pg (28.0-33.3); Mean Corpuscular Volume 68.7 fL (83.0-100.0); Red Blood Count 4.41 M/mcL (4.19-5.50)
[2022-01-17 03:20] LABS: White Blood Count 5.5 K/mcL (4.3-11.1)
[2022-01-17 03:21] LABS: Basophils % 0.5 %; Eosinophils # 0.3 K/mcL (0.0-0.6); Eosinophils % 4.5 %; Immature Platelets 4.8 % (1.1-6.1); Lymphocytes # 0.8 K/mcL (0.6-4.6); Lymphocytes % 14.5 %; Mean Platelet Volume 10.7 fL (9.4-12.4); Monocytes # 0.6 K/mcL (0.0-1.3); Neutrophils # 3.9 K/mcL (1.6-8.9); Platelet Count 294 K/mcL (140-400); Red Cell Distribution Width 24.1 % (11.5-14.5); Segmented Neutrophils % 70.1 %
[2022-01-17] MEDS: Acetaminophen IV 1,000 MG/100 ML BAG IVPB SCH ×4 (03:34→21:52)
[2022-01-17 03:36] LABS: BUN/Creatinine Ratio 8 (6-26); Blood Urea Nitrogen 6 mg/dL (8-23); Calcium 9.1 mg/dL (8.6-10.3); Carbon Dioxide 22 mEq/L (23-29); Chloride 104 mEq/L (98-107); Glucose 113 mg/dL (70-105); Magnesium 1.7 mg/dL (1.6-2.6); Osmolality,Calculated 282 (280-300); Phosphorous 3.2 mg/dL (2.7-4.5); Potassium 3.3 mEq/L (3.5-5.1); Sodium 137 mEq/L (136-145); eGFR For African Americans > 60 (> 60); eGFR For Non-African Americans > 60 (> 60)
[2022-01-17 04:30] LABS: Anisocytosis 2+ (Not Present); Platelet Estimate Normal (Normal)
[2022-01-17] MEDS: Pantoprazole 40 MG VIAL IVP SCH ×2 (05:03→17:49)
[2022-01-17] MEDS: *HR* Heparin 5,000 UNIT/ML VIAL SQ SCH ×2 (05:04→17:50)
[2022-01-17] MEDS: Iron Sucrose Complex 250 MG in 0.9 % Sodium Chloride 250 ML IVPB SCH (09:32)
[2022-01-18] MEDS: Acetaminophen IV 1,000 MG/100 ML BAG IVPB SCH ×2 (03:24→09:30)
[2022-01-18] MEDS: Pantoprazole 40 MG VIAL IVP SCH (06:07)
[2022-01-18] MEDS: Ketorolac 30 MG/ML VIAL IVP SCH ×3 (06:08→09:17)
[2022-01-18] MEDS: *HR* Heparin 5,000 UNIT/ML VIAL SQ SCH (06:08)
[2022-01-18 06:47] VITALS: O2SAT 98
[2022-01-18 10:22] VITALS: BP 131/84; PULSE 73; TEMP 98.4
== END 2022-01-18 13:33 | disposition home or self-care (01) | DRG 331 ==
LOC: SAMDAY 11:59 → 3ANU 12:05
PROVIDERS: ADMIT Surgery; ATTEND Surgery